=== PATIENT | female | born 2005 | race Caucasian/White ===

== ENCOUNTER 2025-07-15 18:42 | Observation (INO) ==
--- NOTE | 2025-07-15 19:21 | Emergency Department Note ---
Impression & Plan AVM (arteriovenous malformation) brain, Visual disturbance, Headache ED Provider Note NAME: CHRISTIANO GALAVIZ AGE: 19 SEX: F : 2005 ARRIVES VIA: Walk-In INFORMANT: Patient, ED PROVIDER(S): Curt Martinez MD CHIEF COMPLAINT: Headache, vision loss MEDICAL DECISION MAKING: Patient presents with the above. The patient does have associated headache now but has not had vision loss since lunch today. The patient has had 2 episodes in the last 2 days. Currently without any visual field deficits but does describe left temporal hemianopsia. IV was established and blood work was obtained. CT head initially obtained. The patient did have recent negative CT angiography of the head and neck with the exception of the prior AVM which the patient had reported status posttreatment. Patient was ordered headache medications. Upon reassessment the patient still had mild headache. The patient CT head that showed the calcified lesion that was noted before. I did speak with Dr. Dye at [facility] neurology service who recommended an MRI of the brain without contrast as well as head and neck MRAs as well as brain MRV. I did speak the patient. I subsequent did speak with the patient's parents her mother Britta and her father. And are amenable to current plan of care. Patient currently without any acute symptoms other than the headache but does not exhibit temporal hemianopsia as she described from earlier today prior to her visit. I did speak with Dr. Elena and the patient was admitted to medicine service Discussion w/ other healthcare providers: Dr. Olivas [facility] neurology Dr. Elena inpatient medicine service Prior /Outside records reviewed: None Differential diagnosis: Migraine headache, complicated migraine, stroke, mini stroke tension headache, dehydration, meningitis, sinusitis, CO exposure, ICH, infection, tumor, sinus thrombosis as well as others were considered. Diagnostics, as interpreted by me: ECG: None Cardiac monitoring: An order was placed for continuous cardiac monitoring. The monitor shows a rate of 79 with sinus rhythm. Patient was placed on pulse oximetry Medical decision rules: None Imaging studies: I informally interpreted the patient's CT head shows calcified lesion with formal report to follow. HPI: Patient presents due to concern for headache and vision changes. The patient states that she had an episode last evening she was walking on campus and had been outside for about 30 or 40 minutes had left-sided lateral vision loss and associated headache. Patient states that this dissipated after about 10 or 15 minutes. She also described her vision being "kaleidoscope." Patient states that this resolved. The patient states though that today at lunch patient had similar episode of symptoms lasting about 10 or 15 minutes in duration. The patient has had persistent right-sided headache although initially 7 out of 10 has improved after taking Tylenol currently 3 or 4 out of 10 in pain. The patient denies any nausea or vomiting. The patient does use corrective lenses for distance. She denies any falls or trauma does not take blood thinning medications. She states that her vision is normal at this time. She denies any neck pain. Patient describes right sided head pain. She denies any numbness ting or focal weakness. No history of stroke or seizure. PAST MEDICAL HISTORY: See Below PAST SURGICAL HISTORY: See Below SOCIAL HISTORY: See Below HOME MEDICATIONS: See Below ALLERGIES: See Below VITALS: See Below PHYSICAL EXAMINATION: GENERAL: NAD, non-toxic. EYE EXAM: Normal conjunctiva. PERRL, no anisocoria and EOM's grossly intact w/o pain. Gross vision intact 20/15 bilaterally with corrective lenses. No visual field deficits at the bedside. OROPHARYNX: Moist mucus membranes, grossly normal dentition. NECK: Trachea midline, no stridor. Supple, no nuchal rigidity, no adenopathy, non-tender. No signs of meningismus. FROM of the neck with good chin to chest and neck extension. LUNGS: Clear to auscultation. Normal chest wall mechanics. HEART: NSR, no MRG. ABDOMEN: Abdomen soft, non-tender, no masses, no rebound or guarding. BACK: No CVA TTP. SKIN: No rashes and no bruising. UPPER EXTREMITIES: Upper extremities are grossly normal. LOWER EXTREMITIES: Grossly normal, no edema. NEURO EXAM: Awake and alert, follows commands, no obvious facial asymmetry, normal speech, moves all 4 extremities. Good [id number], no drift and no sensory deficits. Past Med/Surg History Problem List (Updated 07/16/25 @ 14:57 by Curt Martinez MD) AVM (arteriovenous malformation) brain (Acute) Visual disturbance (Acute) Blurred vision (Acute) Dizziness (Acute) Headache (Acute) Social History Smoking Status: Never smoker Hx Alcohol Use: No Hx Substance Use: No Preferred Language: Divehi Communication Ability: Effective Bread Panner Required: No Beliefs That Will Affect Care: None Current Living Situation: Other Current Living Situation Comment: [employer] student living in an apartment with roommates Other Information That Helps Us Care for You: No Feels Safe at Home: Yes Safety Concerns: Feels Safe At This Time Allergies Allergies Allergy/AdvReac Type Severity Reaction Status Date / Time azithromycin Allergy Hives Verified 07/04/25 14:24 Home Meds Home Medications Medication Instructions Recorded Confirmed budesonide-formoterol HFA 80 2 puff inhalation BID 07/04/25 07/15/25 mcg-4.5 mcg/actuation aerosol inhaler (Symbicort) famotidine 40 mg tablet 40 mg PO HS 07/04/25 07/15/25 triamcinolone acetonide 55 mcg 1 spray intranasal ONCE PM 07/04/25 07/15/25 nasal spray aerosol (Nasacort) Previous Rx's Medication Instructions Recorded methylprednisolone 4 mg tablets in 4 mg PO DAILY #21 ea 07/16/25 a dose pack (Medrol (Maicol)) Results & Data (ED) Vital Signs Vital Signs - 24 hr 07/15/25 18:51 07/15/25 19:09 07/15/25 20:04 Temperature 36.4 C L Temperature Source Temporal Artery Scan Pulse Rate 86 77 Pulse Rate [Apical] 82 Pulse Rate from SpO2 Sensor Pulse Rhythm Regular Pulse Rhythm [Apical] Pulse Strength [Apical] Respiratory Rate 16 16 Respiratory Effort / Characteristics Non-Labored Spontaneous Non-Labored Spontaneous Respiratory Depth Normal Normal Respiratory Pattern Regular Regular Blood Pressure 116/77 Blood Pressure [Right Arm] 127/74 Blood Pressure Mean 90 Blood Pressure Mean [Right Arm] 91 Blood Pressure Position [Right Arm] Semi-fowlers Pulse Oximetry 98 100 100 Oxygen Delivery Method Room Air Room Air Room Air Sepsis Recent Fever Within 48 Hours No Sepsis New/Unexplained Change in Mental Status N/A Sepsis Action Taken by Nursing No Action Required 07/15/25 21:00 07/15/25 22:00 Temperature Temperature Source Pulse Rate 75 Pulse Rate [Apical] 71 Pulse Rate from SpO2 Sensor 72 Pulse Rhythm Pulse Rhythm [Apical] Regular Pulse Strength [Apical] Normal Respiratory Rate 16 15 Respiratory Effort / Characteristics Non-Labored Spontaneous Respiratory Depth Normal Respiratory Pattern Regular Blood Pressure Blood Pressure [Right Arm] 112/66 Blood Pressure Mean Blood Pressure Mean [Right Arm] 81 Blood Pressure Position [Right Arm] Semi-fowlers Pulse Oximetry 99 98 Oxygen Delivery Method Room Air Room Air Sepsis Recent Fever Within 48 Hours Sepsis New/Unexplained Change in Mental Status Sepsis Action Taken by Snf Medications Current Medication List: was personally reviewed by me Laboratory Data Attestation: I reviewed the patient's lab results. 07/15/25 19:44 07/15/25 19:44 Lab Results 07/15/25 Range/Units 19:44 WBC 6.74 (4.8-10.8) K/ul RBC 4.63 (4.20-5.40) M/uL Hgb 13.3 (12.0-16.0) g/dL Hct 39.0 (37.0-47.0) % MCV 84.2 (80.0-100.0) fL MCH 28.7 (25.0-34.0) pg MCHC 34.1 (32.0-36.0) g/dL RDW Std Deviation 37.8 (36.4-46.3) fL RDW Coeff of Buck 12.4 (11.5-14.5) % Plt Count 267 (130-400) K/uL MPV 9.4 (9.4-12.4) fL Immature Gran % (Auto) 0.1 % Neut % (Auto) 48.9 % Lymph % (Auto) 42.3 % [place] % (Auto) 6.2 % Eos % (Auto) 2.2 % Baso % (Auto) 0.3 % Neut # (Auto) 3.29 (1.40-6.50) K/uL Lymph # (Auto) 2.85 (1.20-3.40) K/uL [place] # (Auto) 0.42 (0.11-0.59) K/uL Eos # (Auto) 0.15 (0.00-0.50) K/uL Baso # (Auto) 0.02 (0.00-0.20) K/uL Immature Gran # (Auto) 0.01 (0.01-0.20) K/uL Sodium 138 (136-145) mmol/L Potassium 3.8 (3.5-5.1) mmol/L Chloride 105 (98-107) mmol/L Carbon Dioxide 26 (21-32) mmol/L Anion Gap 7 (3-11) BUN 23 (6-23) mg/dl Creatinine 0.66 (0.6-1.2) mg/dl Est Cr Clr Drug Dosing 108.4 ml/min eGFR 129.51 BUN/Creatinine Ratio 34.8 H (10-20) Glucose 111 H (70-99(Fasting)) mg/dl Calcium 9.9 (8.6-10.3) mg/dl Administered Medications Discontinued Medications Acetaminophen (Acetaminophen 1000 Mg/100 Ml Iv) 1,000 mg IV NOW STA Stop: 07/15/25 19:38 Last Admin: 07/15/25 19:52 Dose: 1,000 mg Documented By: lolis Fluticasone/Vilanterol (Fluticasone/Vilanterol 100/25mcg 14 Puffs/Inhaler) 1 puffs INH DAILY KIMANI; Protocol Stop: 08/15/25 08:59 Last Admin: 07/16/25 10:11 Dose: 1 puffs Documented By: MIHIR Gadobutrol (Gadobutrol 30ml Vial) 5 ml IV ONCE ONE Stop: 07/15/25 23:31 Last Admin: 07/15/25 23:32 Dose: 5 ml Documented By: alyce Sodium Chloride (Nss) 500 mls @ 999 mls/hr IV .Q31M KIMANI Stop: 07/15/25 20:15 Last Infusion: 07/15/25 20:30 Dose: Infused Documented By: lolis Admin: 07/15/25 19:52 Dose: 999 mls/hr Documented By: lolis Ondansetron HCl (Ondansetron Inj 2 Mg/Ml 2 Ml Vial) 4 mg IV NOW STA Stop: 07/15/25 19:38 Last Admin: 07/15/25 19:52 Dose: 4 mg Documented By: lolis Prednisone (Prednisone 20 Mg Tab) 40 mg PO NOW STA Stop: 07/16/25 11:25 Last Admin: 07/16/25 11:42 Dose: 40 mg Documented By: MIHIR Imaging Data Radiologist's Impression: Head CT 07/15/25 19:37 Exam(s): CT HEAD Without Contrast EXAM: CT Head Without Intravenous Contrast CLINICAL HISTORY: Reason for exam: Headache. TECHNIQUE: Axial computed tomography images of the head/brain without intravenous contrast. CTDI is 38.31 mGy and DLP is 547.75 mGy-cm. Automated exposure control was utilized for the study. A dose lowering technique was utilized adhering to the principles of ALARA. COMPARISON: Prior head CT from July 04, 2025. FINDINGS: Brain: There is heavy mineralization of the right parietal lobe gyri with large draining vein concerning for AVM. No hemorrhage. No significant white matter disease. No edema. Ventricles: Unremarkable. No ventriculomegaly. Bones/joints: Unremarkable. No acute fracture. Soft tissues: Unremarkable. Sinuses: Unremarkable as visualized. No acute sinusitis. Mastoid air cells: Unremarkable as visualized. No mastoid effusion. IMPRESSION: No evidence of acute intracranial pathology. Findings concerning for heavily mineralized AVM in the right parietal lobe. Electronically signed by: Tracy Wade MD 07/15/25 21:27 PM Head MRA 07/15/25 21:29 Exam(s): MRA HEAD Without Contrast EXAM: MR Angiography Head Without Intravenous Contrast CLINICAL HISTORY: Reason for exam: AVM h/o; L temporal hemaniopsia resolved. TECHNIQUE: Magnetic resonance angiography images of the head without intravenous contrast. COMPARISON: Prior CT angiogram of the head from July 04, 2025. FINDINGS: There is an AVM in the medial right parietal lobe. Right internal carotid artery: No acute findings. Intracranial segment is patent with no significant stenosis. No aneurysm. Right anterior cerebral artery: Unremarkable. No occlusion or significant stenosis. No aneurysm. Right middle cerebral artery: Unremarkable. No occlusion or significant stenosis. No aneurysm. Right posterior cerebral artery: Unremarkable. No occlusion or significant stenosis. No aneurysm. Right vertebral artery: Unremarkable as visualized. Left internal carotid artery: No acute findings. Intracranial segment is patent with no significant stenosis. No aneurysm. Left anterior cerebral artery: Unremarkable. No occlusion or significant stenosis. No aneurysm. Left middle cerebral artery: Unremarkable. No occlusion or significant stenosis. No aneurysm. Left posterior cerebral artery: Unremarkable. No occlusion or significant stenosis. No aneurysm. Left vertebral artery: Unremarkable as visualized. Basilar artery: Unremarkable. No occlusion or significant stenosis. No aneurysm. IMPRESSION: There is an AVM in the medial right parietal lobe. No evidence of acute cerebrovascular pathology. Electronically signed by: Tracy Wade MD 07/16/25 00:30 AM Head/Brain Mag Res Venography 07/15/25 21:29 Exam(s): MRV HEAD EXAM: MR Venography Head Without Intravenous Contrast CLINICAL HISTORY: Reason for exam: AVM h/o; L temporal hemaniopsia resolved. TECHNIQUE: Magnetic resonance venography images of the head without intravenous contrast. 3D and MIP reconstructed images were created and reviewed. COMPARISON: No relevant prior studies available. FINDINGS: Superior sagittal sinus: Unremarkable. Patent. Straight sinus: Unremarkable. Patent. Transverse sinuses: Unremarkable. Patent. Sigmoid sinuses: Unremarkable. Patent. Internal jugular veins: Unremarkable as visualized. Internal cerebral and cortical veins: Unremarkable as visualized. IMPRESSION: Negative MRV of the brain. Electronically signed by: Tracy Wade MD 07/16/25 00:28 AM Neck MRA 07/15/25 21:29 Exam(s): MRA NECK Without Contrast EXAM: MR Angiography Neck Without Intravenous Contrast CLINICAL HISTORY: Reason for exam: AVM h/o; L temporal hemaniopsia resolved. TECHNIQUE: Magnetic resonance angiography images of the neck without intravenous contrast. COMPARISON: No relevant prior studies available. FINDINGS: Right common carotid artery: Unremarkable. No significant stenosis. No dissection or occlusion. Right internal carotid artery: Unremarkable. Extracranial segment is patent with no significant stenosis. No dissection or occlusion. Right external carotid artery: Unremarkable. No occlusion. Right vertebral artery: Unremarkable. No significant stenosis. No dissection or occlusion. Left common carotid artery: Unremarkable. No significant stenosis. No dissection or occlusion. Left internal carotid artery: Unremarkable. Extracranial segment is patent with no significant stenosis. No dissection or occlusion. Left external carotid artery: Unremarkable. No occlusion. Left vertebral artery: Unremarkable. No significant stenosis. No dissection or occlusion. Soft tissues: Moderate size right thyroid nodule. CAROTID STENOSIS REFERENCE USING NASCET CRITERIA: % ICA stenosis = (1 - narrowest ICA diameter/diameter of distal cervical ICA) x 100. Mild - <50% stenosis. Moderate - 50-69% stenosis. Severe - 70-94% stenosis. Near occlusion - 95-99% stenosis. Occluded - 100% stenosis. IMPRESSION: Negative MRA of the neck. Electronically signed by: Tracy Wade MD 07/16/25 00:31 AM Brain MRI 07/15/25 21:30 Exam(s): MRI HEAD W/WO Contrast EXAM: MR Head Without and With Intravenous Contrast CLINICAL HISTORY: Reason for exam: AVM h/o; L temporal hemaniopsia resolved. TECHNIQUE: Magnetic resonance images of the head/brain without and with intravenous contrast in multiple planes. CONTRAST: Contrast must be dictated COMPARISON: Prior head CT from the same day. FINDINGS: Brain: There is a heavily calcified AVM in the medial right parietal lobe with large draining vein and mild surrounding vasogenic edema. No hemorrhage. No acute infarct. The flow voids at the base of the brain are intact. The dural venous sinuses are patent. Ventricles: Unremarkable. No ventriculomegaly. Bones/joints: Unremarkable. No acute fracture. Sinuses: Unremarkable as visualized. No acute sinusitis. Mastoid air cells: Unremarkable as visualized. No mastoid effusion. Orbits: Unremarkable as visualized. IMPRESSION: There is a heavily calcified AVM in the medial right parietal lobe with mild surrounding vasogenic edema. No evidence of hemorrhage. Recommend neuro IR consult for treatment. Electronically signed by: Tracy Wade MD 07/16/25 00:26 AM Discharge Plan Visit Data Chief Complaint: Headache Stated Complaint: HEADACHE, VISUAL DISTURBANCE, BRAIN ABM ED Provider: Curt Martinez Discharge Problem: AVM (arteriovenous malformation) brain, Visual disturbance, Headache Patient Disposition: Admitted As Inpatient Condition: Good Discharge Instructions Interventions: ED Discharge Assessment Last Done: 07/15/25 23:22 Discharge Problem: Headache Qualifiers: Headache type: unspecified Headache chronicity pattern: acute headache
[2025-07-15] MEDS: ONDANSETRON INJ 2 MG/ML 2 ML VIAL IV STA (19:52)
[2025-07-15] MEDS: ACETAMINOPHEN 1000 MG/100 ML IV IV STA (19:52)
[2025-07-15] MEDS: SODIUM CHLORIDE 0.9% 500 ML IV SCH (19:52)
[2025-07-15 19:59] LABS: Hematocrit (blood only) 39.0 % (37.0-47.0); Hemoglobin 13.3 g/dL (12.0-16.0); Immature Granulocytes # (auto) 0.01 K/uL (0.01-0.20); Immature Granulocytes % (auto) 0.1 %; Mean Corpuscular Hemoglobin 28.7 pg (25.0-34.0); Mean Corpuscular Volume 84.2 fL (80.0-100.0); Platelet Count 267 K/uL (130-400); RDW Standard Deviation 37.8 fL (36.4-46.3); Red Blood Count 4.63 M/uL (4.20-5.40); White Blood Count 6.74 K/ul (4.8-10.8)
[2025-07-15 20:17] LABS: Anion Gap 7.0 (3-11); Blood Urea Nitrogen 23.0 mg/dl (6-23); Calcium 9.9 mg/dl (8.6-10.3); Carbon Dioxide 26.0 mmol/L (21-32); Chloride 105.0 mmol/L (98-107); Creatinine Clr Calc Pharmacy 108.4 ml/min; Glucose 111.0 mg/dl (70-99(Fasting)); Potassium 3.8 mmol/L (3.5-5.1); Sodium 138.0 mmol/L (136-145)
--- NOTE | 2025-07-15 21:28 | CT Scan Report ---
Exam(s): CT HEAD Without Contrast EXAM: CT Head Without Intravenous Contrast CLINICAL HISTORY: Reason for exam: Headache. TECHNIQUE: Axial computed tomography images of the head/brain without intravenous contrast. CTDI is 38.31 mGy and DLP is 547.75 mGy-cm. Automated exposure control was utilized for the study. A dose lowering technique was utilized adhering to the principles of ALARA. COMPARISON: Prior head CT from July 04, 2025. FINDINGS: Brain: There is heavy mineralization of the right parietal lobe gyri with large draining vein concerning for AVM. No hemorrhage. No significant white matter disease. No edema. Ventricles: Unremarkable. No ventriculomegaly. Bones/joints: Unremarkable. No acute fracture. Soft tissues: Unremarkable. Sinuses: Unremarkable as visualized. No acute sinusitis. Mastoid air cells: Unremarkable as visualized. No mastoid effusion. IMPRESSION: No evidence of acute intracranial pathology. Findings concerning for heavily mineralized AVM in the right parietal lobe. Electronically signed by: Tracy Wade MD 07/15/25 21:27 PM
--- NOTE | 2025-07-15 22:06 | History & Physical Report ---
Date of Service July 15, 2025 Assessment & Plan (1) Headache: (2) Visual disturbance: (3) AVM (arteriovenous malformation) brain: Plan 19-year-old female PMHx known AVM and GERD presenting for headache starting 1 day DIRECTOR DRUG as well as visual disturbances. Overall evaluation is unremarkable with labs. Her imaging is without acute findings but does show evidence of a heavily mineralized AVM in the R parietal lobe. Admission for further imaging and neurology evaluation. #Headache with visual disturbances/AVM of brain Presented with visual disturbances and headache, now resolved. History of AVM, dx Aug/Sep 2024 timeframe, s/p neuro surgery for embolization December 2024. No other known areas of AVMs per pt. Imaging pending, neuro to evaluate patient. - CBC and CMP grossly unremarkable - Head CT no evidence of acute cranial pathology, does show findings concerning for heavily mineralized AVM in the R parietal lobe - Zofran prn N/V - Acetaminophen prn fever/pain - May use Vicks VapoRub or hospital equivalent prn for pain - MRA head and neck, MRV head reported as negative, MRA head still revealing AVM medial R parietal lobe - MRI brain calcified AVM in medial R parietal lobe with mild surrounding vasogenic edema, no hemorrhage -- recommended IR neuro consult Discussed findings with nanofabrication specialist neurologist - possibly chronic changes, no thrombosis or aneurysm - can trial steroids if headaches become more severe - Neurology consulted - appreciate input and recs #Asthma- Symbicort - continue formulary option Dispo: Obs, med/sx VTE Prophylaxis: SCDs This document was dictated utilizing Osmopure. Please excuse any grammatical errors that may be secondary to use of this software. Admission and Anticipated Discharge Date Admission Date: 07/15/2025 History of Present Illness Chief Complaint: COKER, visual disturbances Primary Care Provider: [facility] 19-year-old female PMHx known AVM and GERD presenting for headache starting 1 day DIRECTOR [employer] as well as visual disturbances. Patient reports the evening [employer] she experienced vision loss in the left eye in the lateral field that is associated with a headache mostly on the right side but also as a headband type pattern across her forehead. The vision loss lasted for approximately 10 minutes, was described as a "kaleidoscope" as well as a splotchy black area in her left sided vision. Similar episode occurred day of arrival near lunchtime. Symptoms have since resolved, but headache continues to persist. Rates the pain a 3-4 out of 10 on the pain scale. Describes it as an aching pain across to her head in a headband like fashion as well as occasional shooting pain only on the right side. At its worst, the pain was a 7 out of 10 on the pain scale. Normally when she has headaches like this she utilizes Vicks vapor rub and it helps to alleviate the pain some. No other focal deficits to include weakness, numbness/tingling, or ongoing visual disturbances. She reports that she was diagnosed with AVM in approximately August/September timeframe after her initial headache occurred around of 2023. She then underwent brain surgery in December 2024 for embolization that was limited secondary to risk of CVA. She has on and off headaches, no clear triggers, but the visual disturbances are new. No other areas of known AVMs. She felt slightly "disoriented" with her visual changes, but feels back to baseline in that regard at present. Denies chest pain, SOB, palpitations, abdominal pain, N/V/D/C, fever/chills, URI symptoms, LUTS, weakness, syncope, or falls. ED evaluation CBC without leukocytosis or leukopenia, stable H&H and platelets; CMP BUN/creatinine ratio 34.8, glucose 111; head CT no evidence of acute intracranial pathology, findings concerning for heavily mineralized AVM in the R parietal lobe.; Provided with 500 mL NSS, Zofran 4 mg IV, acetaminophen 1 g IV in ED. Please see Dr. Maldonado's attestation for adjustments/additions to treatment plan. Allergies Allergy/AdvReac Type Severity Reaction Status Date / Time azithromycin Allergy Hives Verified 07/04/25 14:24 Home Medications Medication Instructions Recorded Confirmed Type budesonide-formoterol HFA 80 2 puff inhalation BID 07/04/25 07/15/25 History mcg-4.5 mcg/actuation aerosol inhaler (Symbicort) famotidine 40 mg tablet 40 mg PO HS 07/04/25 07/15/25 History triamcinolone acetonide 55 mcg 1 spray intranasal ONCE PM 07/04/25 07/15/25 History nasal spray aerosol (Nasacort) methylprednisolone 4 mg tablets in 4 mg PO DAILY #21 ea 07/16/25 Rx a dose pack (Medrol (Maicol)) Past Med/Surg History Problem List (Updated 07/16/25 @ 14:57 by Curt Martinez MD) AVM (arteriovenous malformation) brain (Acute) Visual disturbance (Acute) Blurred vision (Acute) Dizziness (Acute) Headache (Acute) Social History Smoking Status: Never smoker Hx Alcohol Use: No Hx Substance Use: No Preferred Language: Latvian Communication Ability: Effective Automatic Equipment Technician Required: No Beliefs That Will Affect Care: None Current Living Situation: Other Current Living Situation Comment: [employer] student living in an apartment with roommates Other Information That Helps Us Care for You: No Feels Safe at Home: Yes Safety Concerns: Feels Safe At This Time Review of Systems Review of Systems: All systems reviewed & are unremarkable except as noted in Subjective Physical Exam Physical Exam: General: No acute distress Skin: Warm and dry Head: Normocephalic, atraumatic Eyes: PERRL, conjunctivae clear, sclera non-icteric, EOM intact ENT: External ear and ear canal without swelling; nose atraumatic; good dentition, tongue normal appearance, pharynx normal Neck: Supple, no LAD Cardio: RRR, no M/G/R, S1 and S2 normal Resp: No respiratory distress, Lungs CTA in all lobes bilaterally, no wheezes, rales, or rhonchi Abdomen: Soft, symmetric, nontender; No masses or hepatosplenomegaly; Bowel sounds normoactive MSK: No deformities; pulses palpable and equal; no edema. Neuro: Awake, alert; Sensation intact bilaterally; CN grossly intact, no focal deficits Psych: Appropriate mood and affect; good judgement and insight. Friend present in room at time of visit. Results & Data Results & Data Vital Signs (Past 12 Hours) Vital Signs Temp Pulse Pulse Resp BP BP Pulse Ox 07/15/25 21:00 71 16 112/66 99 07/15/25 20:04 77 100 07/15/25 19:09 82 16 127/74 100 07/15/25 18:51 36.4 C L 86 16 116/77 98 O2 Del Method 07/15/25 21:00 Room Air 07/15/25 20:04 Room Air 07/15/25 19:09 Room Air 07/15/25 18:51 Room Air Laboratory Results 07/15/25 19:44 WBC 6.74 RBC 4.63 Hgb 13.3 Hct 39.0 MCV 84.2 MCH 28.7 MCHC 34.1 RDW Std Deviation 37.8 RDW Coeff of Buck 12.4 Plt Count 267 MPV 9.4 Immature Gran % (Auto) 0.1 Neut % (Auto) 48.9 Lymph % (Auto) 42.3 [place] % (Auto) 6.2 Eos % (Auto) 2.2 Baso % (Auto) 0.3 Neut # (Auto) 3.29 Lymph # (Auto) 2.85 [place] # (Auto) 0.42 Eos # (Auto) 0.15 Baso # (Auto) 0.02 Immature Gran # (Auto) 0.01 Sodium 138 Potassium 3.8 Chloride 105 Carbon Dioxide 26 Anion Gap 7 BUN 23 Creatinine 0.66 Est Cr Clr Drug Dosing 108.4 eGFR 129.51 BUN/Creatinine Ratio 34.8 H Glucose 111 H Calcium 9.[address] 07/15/25 19:37 Exam(s): CT HEAD Without Contrast EXAM: CT Head Without Intravenous Contrast CLINICAL HISTORY: Reason for exam: Headache. TECHNIQUE: Axial computed tomography images of the head/brain without intravenous contrast. CTDI is 38.31 mGy and DLP is 547.75 mGy-cm. Automated exposure control was utilized for the study. A dose lowering technique was utilized adhering to the principles of ALARA. COMPARISON: Prior head CT from July 04, 2025. FINDINGS: Brain: There is heavy mineralization of the right parietal lobe gyri with large draining vein concerning for AVM. No hemorrhage. No significant white matter disease. No edema. Ventricles: Unremarkable. No ventriculomegaly. Bones/joints: Unremarkable. No acute fracture. Soft tissues: Unremarkable. Sinuses: Unremarkable as visualized. No acute sinusitis. Mastoid air cells: Unremarkable as visualized. No mastoid effusion. IMPRESSION: No evidence of acute intracranial pathology. Findings concerning for heavily mineralized AVM in the right parietal lobe. Electronically signed by: Trcay Wade MD 07/15/25 21:27 PM Medications Administered 500 mL NSS Zofran 4 mg IV Acetaminophen 1 g IV Code Status & VTE Plan Code Status Full Supervising Physician Co-Signing Physician Notes Attending addendum: I have physically seen this patient, have supervised the medical residents activities, and agree with the H&P unless as otherwise noted. Assessment and Plan: 19yo female with PMH including Brain AVM, and GERD who presents to the ED with complaint of headache and visual disturbance starting 1 day DIRECTOR DRUG. Workup in the ED includes normal CBC and chemistries. CT of head shows a heavily mineralized AVM in the Right parietal lobe. Neurology consult advised admission and further imaging by MRI. Headache with visual disturbance/ right parietal lobe AVM- Symptoms have resolved while in the ED Zofran 4 mg IV every 6 hours as needed Acetaminophen 1 g IV every 8 hours as needed for mild pain or fever CT abdomen shows heavily mineralized AVM in parietal lobe MRI brain and MRA showed calcified AVM medial right parietal lobe with mild surrounding vasogenic edema, no hemorrhage. MRV head is negative Findings discussed with on-call neurology, who felt changes were probably chronic, with no thrombosis or aneurysm. Trial of steroids if symptoms recur and/or worsen Asthma- Continue Symbicort and PG Care Time/CCT Total # of Minutes Spent Total Time Spent with Patient: Total time spent is greater than 50% in coordination of care (as documented) at patient's floor/unit and/or counseling patient: Coding Level of Care Code 62137 INT INP/OBS CARE 2/55MIN Diagnoses Headache G44.89 Headache type: other headache syndrome Visual disturbance H53.9 AVM (arteriovenous malformation) brain Q28.2 (1) Headache Headache type: other headache syndrome Qualified Code(s): G44.89 - Other h eadache syndrome
[2025-07-15] MEDS: GADOBUTROL 30ML VIAL IV ONE (23:32)
[2025-07-16] MEDS ORDERED: POLYETHYLENE (MIRALAX) 17 GM PACK PO PRN (00:04)
[2025-07-16] MEDS ORDERED: ACETAMINOPHEN 500 MG TAB PO PRN (00:04)
[2025-07-16] MEDS ORDERED: ONDANSETRON INJ 2 MG/ML 2 ML VIAL IV PRN (00:04)
--- NOTE | 2025-07-16 00:28 | Magnetic Resonance Report ---
Exam(s): MRI HEAD W/WO Contrast EXAM: MR Head Without and With Intravenous Contrast CLINICAL HISTORY: Reason for exam: AVM h/o; L temporal hemaniopsia resolved. TECHNIQUE: Magnetic resonance images of the head/brain without and with intravenous contrast in multiple planes. CONTRAST: Contrast must be dictated COMPARISON: Prior head CT from the same day. FINDINGS: Brain: There is a heavily calcified AVM in the medial right parietal lobe with large draining vein and mild surrounding vasogenic edema. No hemorrhage. No acute infarct. The flow voids at the base of the brain are intact. The dural venous sinuses are patent. Ventricles: Unremarkable. No ventriculomegaly. Bones/joints: Unremarkable. No acute fracture. Sinuses: Unremarkable as visualized. No acute sinusitis. Mastoid air cells: Unremarkable as visualized. No mastoid effusion. Orbits: Unremarkable as visualized. IMPRESSION: There is a heavily calcified AVM in the medial right parietal lobe with mild surrounding vasogenic edema. No evidence of hemorrhage. Recommend neuro IR consult for treatment. Electronically signed by: Tracy Wade MD 07/16/25 00:26 AM
--- NOTE | 2025-07-16 00:29 | Magnetic Resonance Report ---
Exam(s): MRV HEAD EXAM: MR Venography Head Without Intravenous Contrast CLINICAL HISTORY: Reason for exam: AVM h/o; L temporal hemaniopsia resolved. TECHNIQUE: Magnetic resonance venography images of the head without intravenous contrast. 3D and MIP reconstructed images were created and reviewed. COMPARISON: No relevant prior studies available. FINDINGS: Superior sagittal sinus: Unremarkable. Patent. Straight sinus: Unremarkable. Patent. Transverse sinuses: Unremarkable. Patent. Sigmoid sinuses: Unremarkable. Patent. Internal jugular veins: Unremarkable as visualized. Internal cerebral and cortical veins: Unremarkable as visualized. IMPRESSION: Negative MRV of the brain. Electronically signed by: Tracy Wade MD 07/16/25 00:28 AM
--- NOTE | 2025-07-16 00:31 | Magnetic Resonance Report ---
Exam(s): MRA NECK Without Contrast EXAM: MR Angiography Neck Without Intravenous Contrast CLINICAL HISTORY: Reason for exam: AVM h/o; L temporal hemaniopsia resolved. TECHNIQUE: Magnetic resonance angiography images of the neck without intravenous contrast. COMPARISON: No relevant prior studies available. FINDINGS: Right common carotid artery: Unremarkable. No significant stenosis. No dissection or occlusion. Right internal carotid artery: Unremarkable. Extracranial segment is patent with no significant stenosis. No dissection or occlusion. Right external carotid artery: Unremarkable. No occlusion. Right vertebral artery: Unremarkable. No significant stenosis. No dissection or occlusion. Left common carotid artery: Unremarkable. No significant stenosis. No dissection or occlusion. Left internal carotid artery: Unremarkable. Extracranial segment is patent with no significant stenosis. No dissection or occlusion. Left external carotid artery: Unremarkable. No occlusion. Left vertebral artery: Unremarkable. No significant stenosis. No dissection or occlusion. Soft tissues: Moderate size right thyroid nodule. CAROTID STENOSIS REFERENCE USING NASCET CRITERIA: % ICA stenosis = (1 - narrowest ICA diameter/diameter of distal cervical ICA) x 100. Mild - <50% stenosis. Moderate - 50-69% stenosis. Severe - 70-94% stenosis. Near occlusion - 95-99% stenosis. Occluded - 100% stenosis. IMPRESSION: Negative MRA of the neck. Electronically signed by: Tracy Wade MD 07/16/25 00:31 AM
--- NOTE | 2025-07-16 00:31 | Magnetic Resonance Report ---
Exam(s): MRA HEAD Without Contrast EXAM: MR Angiography Head Without Intravenous Contrast CLINICAL HISTORY: Reason for exam: AVM h/o; L temporal hemaniopsia resolved. TECHNIQUE: Magnetic resonance angiography images of the head without intravenous contrast. COMPARISON: Prior CT angiogram of the head from July 04, 2025. FINDINGS: There is an AVM in the medial right parietal lobe. Right internal carotid artery: No acute findings. Intracranial segment is patent with no significant stenosis. No aneurysm. Right anterior cerebral artery: Unremarkable. No occlusion or significant stenosis. No aneurysm. Right middle cerebral artery: Unremarkable. No occlusion or significant stenosis. No aneurysm. Right posterior cerebral artery: Unremarkable. No occlusion or significant stenosis. No aneurysm. Right vertebral artery: Unremarkable as visualized. Left internal carotid artery: No acute findings. Intracranial segment is patent with no significant stenosis. No aneurysm. Left anterior cerebral artery: Unremarkable. No occlusion or significant stenosis. No aneurysm. Left middle cerebral artery: Unremarkable. No occlusion or significant stenosis. No aneurysm. Left posterior cerebral artery: Unremarkable. No occlusion or significant stenosis. No aneurysm. Left vertebral artery: Unremarkable as visualized. Basilar artery: Unremarkable. No occlusion or significant stenosis. No aneurysm. IMPRESSION: There is an AVM in the medial right parietal lobe. No evidence of acute cerebrovascular pathology. Electronically signed by: Tracy Wade MD 07/16/25 00:30 AM
[2025-07-16 07:28] VITALS: TEMP 97.7; O2SAT 97
[2025-07-16] MEDS: FLUTICASONE/VILANTEROL 100/25MCG 14 PUFFS/INHALER INH SCH (10:11)
--- NOTE | 2025-07-16 10:55 | Neurology Consultation ---
Date of Consultation July 16, 2025 Assessment & Plan (1) Visual disturbance: Vision disturbance which are felt to be described as" spells" by patient. Presents with historical 3 episodes 1 which came out last week associated with left vision loss blotchy vision kaleidoscope vision lasting 10 to 15 minutes felt disoriented and confused. Last 2 spells happen a day ago accompanied with headaches starting with blotchy vision kaleidoscope vision lasting 10 to 15 minutes associated with disorientation and confusion. No other associated findings such as speech or loss of consciousness or altered leg symptoms. No overall control seems noted. Symptoms are resolved now. MRI of the brain shows AVM calcified right parietal lobe region with associated radiation changes/history of radiation. Concerns for some swelling around the area. MRV or MR venogram study does not show thrombosis MR a study of the head and neck no flow-limiting stenosis identified. (2) Blurred vision: (3) Headache: No prior history of migraine headaches no history of motion sickness/carsickness when younger (4) AVM (arteriovenous malformation) brain: Has history of AVM [facility] and also [facility]. Plan - Medrol Dosepak or methylprednisolone for 6 days take as directed for swelling/headache improvement. Patient has been on Decadron in the past and familiar with steroids usage. - MRI of the brain reviewed no hemorrhage seen or acute findings. MRV/MRA reviewed with no blockages or findings to suggest thrombosis. - Patient will need scans performed here at [facility] to be provided to her so she could provide to ADM providers at [facility] for her appointment coming up in the near future. - EEG as an outpatient to be done looking for underlying seizure activity/epilep tiform activity since some of the spells are fairly stereotyped. No episodes of loss of consciousness only disorientation and confusion reduced cost. - Outpatient follow-up with neurology here at [facility] - Patient will let us know how she is responding to steroids prior to making any accommodations with her finals coming up. Thank you for this telehealth appointment. Please [place] text neurology with any questions if these arise. Kaz Rossi Neurology Total time spent: Total time spent was of 90 minutes. Of this 44 minutes was spent with the video/Amwell consultation which included history taking and examination. Rest of this 46 minutes total was spent with chart review/review of the images and lab results and also documentation and discussion with providers. Telehealth Consultation Telehealth Information Telehealth Information: I performed this visit using a real-time telehealth connection between my location and the patients originating location ([facility]). After connecting through interactive tele-video, patient was identified by name and date of and/or wristband check.Patient (or authorized healthcare inventory representative) was informed that this was a telemedicine visit and it was being conducted confidentially over secure lines. My office door was closed and no one else was present in the room with me.Patient (or authorized healthcare inventory representative) provided consent to proceed with the visit, expressed an understanding of privacy and security of the telemedicine visit, and gave permission to have a hospital inventory representative in the room in order to assist with the visit and to conduct portions of the visit, as needed. I informed the patient (or authorized healthcare inventory representative) that I reviewed their record and presented the opportunity for them to ask any questions regarding the visit today. The patient agreed to participate. History of Present Illness Reason for Consultation: AVM headaches Vision changes Requesting Physician: Carolee Love Pa-C Attending Physician: Jozef Swan MD History of Present Illness 19-year-old who has a prior history of AVM follow-up in [facility] in [facility]. Attempted embolization but this was not continued with ultimate treatment with radiation. Due for follow-up with AVM providers in the near future. Presented a week ago with an episode of kaleidoscope vision also blotchy vision with left vision loss came on suddenly the night prior she was walking out in the cold cart inside felt dizzy had the vision symptoms lasted around 15 minutes she went to the bathroom she felt confused and disoriented. She thought it was due to the cold. Headaches came on with it was 7 out of 10 took Tylenol and brought the headaches down to 4 out of 10. Had 2 more episodes approximately a day ago consistent with kaleidoscope vision blotchy vision vision gives out mostly on the left and felt disoriented and confused. She does see circular pulses" and also black and blue colors with yellow. Headaches she does get headaches takes Tylenol which makes them better denies any history of migraines. Does admit to some history of carsickness or motion sickness and feels very nauseous. Denies any head trauma she only had some minor concussions in high school never has loss of consciousness related to this. The concussion was related to a trampoline accident. Denies any other symptoms such as numbness or tingling or any weakness denies any speech issues. With regards to her AVM history she presented as a brain bleed in the new years of last year. She went to [place] for AVM it was attempted in December embolization but this was discontinued since there was fear of her having a stroke with this form of treatment. She had radiation treatment at [facility] and developed brain swelling with this she did have some loss of vision related to this treated with steroids which was felt to bring the inflammation down. She has an appointment with them again in Thursday of next week. She is currently a student here at [employer] and undergoing finals. Currently her vision is better she does admit to headaches. She has not had any further episodes. Allergies Allergy/AdvReac Type Severity Reaction Status Date / Time azithromycin Allergy Hives Verified 07/04/25 14:24 Home Medications Medication Instructions Recorded Confirmed Type budesonide-formoterol HFA 80 2 puff inhalation BID 07/04/25 07/15/25 History mcg-4.5 mcg/actuation aerosol inhaler (Symbicort) famotidine 40 mg tablet 40 mg PO HS 07/04/25 07/15/25 History triamcinolone acetonide 55 mcg 1 spray intranasal ONCE PM 07/04/25 07/15/25 History nasal spray aerosol (Nasacort) Patient History Social History Smoking Status: Never smoker Hx Alcohol Use: No Hx Substance Use: No Preferred Language: Martiniquais Communication Ability: Effective Structural Metal Worker Required: No Beliefs That Will Affect Care: None Current Living Situation: Other Current Living Situation Comment: [employer] student living in an apartment with roommates Other Information That Helps Us Care for You: No Feels Safe at Home: Yes Safety Concerns: Feels Safe At This Time Review of Systems Other than above as expressed in the history of present illness she denies any other symptoms. Physical Exam Alert and attentive and oriented x 3. Her speech is fluent nondysarthric no hoarseness noted on examination. She was able to read the stroke cards without difficulty with 1 eye at a time. No definite visual deficit noted. No abnormal movements were noted. Her smile was symmetrical there was no facial symmetry noted extraocular muscles were full she was able to look up to the sides and down without any difficulty. No nystagmus was noted. There was no drift on examination coordination screen to-nose testing was within normal limits. There was no dysmetria noted. With arms raised no weakness in the upper extremities was noted. She was examined sitting in her bed. Her fund of knowledge is accurate and full. She was able to repeat without any issues and also comprehension was normal. Tone of voice affect were within normal range. She was very conversant did not appear anxious and asked very good questions. Results & Data Vital Signs (Past 12 Hours) Vital Signs Temp Pulse Pulse Pulse Resp BP Pulse Ox 07/16/25 07:26 36.5 C 81 16 103/70 97 07/16/25 03:31 36.7 C 65 18 109/67 98 07/16/25 00:44 36.7 C 79 16 113/81 96 07/16/25 00:04 36.7 C 79 16 113/81 96 07/16/25 00:00 62 O2 Del Method 07/16/25 07:26 Room Air 07/16/25 03:31 Room Air 07/16/25 00:44 Room Air 07/16/25 00:04 Room Air 07/16/25 00:00 (3) Headache Headache type: other headache syndrome Qualified Code(s): G44.89 - Other headache syndrome
[2025-07-16 11:18] VITALS: BP 106/73; RESP 17
--- NOTE | 2025-07-16 11:33 | Discharge Summary ---
Discharge Summary Date of Service July 16, 2025 Principal Dx & Hospital Course #1 = Principal Diagnosis (1) Headache: (2) Visual disturbance: (3) AVM (arteriovenous malformation) brain: Plan 19-year-old female PMHx known AVM and GERD presenting for headache starting 1 day [employer] as well as visual disturbances. Overall evaluation is unremarkable with labs. Her imaging is without acute findings but does show evidence of a heavily mineralized AVM in the R parietal lobe. Admission for further imaging and neurology evaluation. #Headache with visual disturbances/AVM of brain Presented with visual disturbances and headache. History of AVM, dx Aug/Sep 2024 timeframe, s/p neuro surgery for embolization December 2024. No other known areas of AVMs per pt. CBC and CMP grossly unremarkable Head CT no evidence of acute cranial pathology, does show findings concerning for heavily mineralized AVM in the R parietal lobe Head MRA - AVM in medial right parietal lobe; Head MRV negative Brain MRI - heavily calcified AVM in medial right parietal lobe w/ mild surrounding vasogenic edema. no evidence of hemorrhage. Rec neuro IR for tx Neurology consulted, discussed on phone --> recommending medrol dose pack on discharge, EEG outpatient to eval for partial seizures,establish with local neuro, & follow up w/ neuro provider in [place]. Stable for dc from a neuro standpoint. #Asthma- Symbicort - continue formulary option Patient discharged home 07/16. Admission HPI Per Admitting Provider 19-year-old female PMHx known AVM and GERD presenting for headache starting 1 day [employer] as well as visual disturbances. Patient reports the evening [employer] she experienced vision loss in the left eye in the lateral field that is associated with a headache mostly on the right side but also as a headband type pattern across her forehead. The vision loss lasted for approximately 10 minutes, was described as a "kaleidoscope" as well as a splotchy black area in her left sided vision. Similar episode occurred day of arrival near lunchtime. Symptoms have since resolved, but headache continues to persist. Rates the pain a 3-4 out of 10 on the pain scale. Describes it as an aching pain across to her head in a headband like fashion as well as occasional shooting pain only on the right side. At its worst, the pain was a 7 out of 10 on the pain scale. Normally when she has headaches like this she utilizes Vicks vapor rub and it helps to alleviate the pain some. No other focal deficits to include weakness, n umbness/tingling, or ongoing visual disturbances. She reports that she was diagnosed with AVM in approximately August/September timeframe after her initial headache occurred around of 2023. She then underwent brain surgery in December 2024 for embolization that was limited secondary to risk of CVA. She has on and off headaches, no clear triggers, but the visual disturbances are new. No other areas of known AVMs. She felt slightly "disoriented" with her visual changes, but feels back to baseline in that regard at present. Denies chest pain, SOB, palpitations, abdominal pain, N/V/D/C, fever/chills, URI symptoms, LUTS, weakness, syncope, or falls. ED evaluation CBC without leukocytosis or leukopenia, stable H&H and platelets; CMP BUN/creatinine ratio 34.8, glucose 111; head CT no evidence of acute intracranial pathology, findings concerning for heavily mineralized AVM in the R parietal lobe.; Provided with 500 mL NSS, Zofran 4 mg IV, acetaminophen 1 g IV in ED. Please see Dr. Maldonado's attestation for adjustments/additions to treatment plan. Discharge Exam General: NAD, VS: BP 106/73; P75; R17; T36.5C Resp: normal respiratory effort Extremities: Moves all extremities, no edema Neuro: A&O x3 Skin: intact, no lesions noted Discharge Plan Discharge Items Patient Disposition: Home - Self-Care Reason For Visit: COKER, VISUAL DISTURBANCES, H/o AVM Discharge Diagnosis: Headache, Parietal lobe AVM Condition on Discharge: Good Activity: Resume your previous activity Non-emergency contact: Primary Care Provider and Neurologist Call non-emergency contact if: you have any medication questions and your symptoms worsen Follow-up/Referrals: Asad Hughes MD [Physician] - [facility] [Primary Care Provider] - Diet: Regular Addtl Attending Provider Instructions: Ms. Whitmore, You were recently hospitalized secondary to headaches and visual disturbances. You underwent imaging to re-eval your known AVM. You were also evaluated by our neurologist who provided you with recommendations. Dr. Rossi is recommending that you be discharged on a steroid taper. 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 Our [facility] navigator will begin to work on an appointment date for both an EEG and the neurology appointment. Our facility will be in contact with you regarding the dates at times. If you decide to get your EEG close to home over your winter break, that is fine as well. I have also attached a school excuse for you for the upcoming week in the event that you should need it. An imaging disk and copy of your hospital stay has been given to you prior to discharge so that you can have the information for your upcoming follow up with your established neurologist. Medications: Your medication list has been reviewed and reconciled upon discharge to ensure accuracy and continuity of care. An updated list of all your medications is included with your hospital discharge paperwork. Please review this list closely, and make note of any changes. Please take the Medrol dose pack as prescribed. Take your medications as instructed; do not skip a dose of your medicines. Make sure all of your doctors know every medicine you are taking (including ohua-bea-xyqeybu medicines, vitamins, and supplements). Call your primary care provider before taking any new medicines (including over- the-counter medicines, vitamins, and supplements), because some of these may interact with your current medications, or may make your symptoms worse. Tell your primary care provider if you cannot afford your medications. Activity: You can do normal everyday activities as your body allows. Take rest breaks if you feel tired. Do not overexert. Stop activity if you have pain, shortness of breath or feel dizzy. Follow-up appointments: Make an appointment with your primary care physician within one week of discharge. A copy of this summary will be sent to them. Every time you see your primary care physician, or any other doctor, bring your medication list, and a list of questions. CONTACT YOUR PRIMARY CARE PROVIDER if you experience any of the following: Shortness of breath or difficulty breathing Fevers or chills Feeling tired with normal activity or experiencing dizziness or fainting Difficulty following your treatment plan, or difficulty taking medications CALL 911 OR GO TO THE EMERGENCY DEPARTMENT if you experience any of the following: Severe abdominal pain or nausea/vomiting Severe chest pain, or chest pain that radiates (moves) to your jaw or arm Sudden, severe shortness of breath or difficulty breathing Thank you for allowing us to participate in your care. Pending Studies at Discharge: No Stand-Alone Forms: [facility], Work/School Release, Smoking Cessation Medications and DC Order Prescriptions: New methylprednisolone [Medrol (Maicol)] 4 mg tablets,dose pack 4 mg PO DAILY Qty: 21 0RF Rx Instructions: Please take 6 tabs on day 1 then 5 tabs on day 2 then 4 tabs on day 3 then 3 tabs on day 4 then 2 tabs on day 5 then 1 tab on day 6 Continued famotidine 40 mg Tablet 40 mg PO HS triamcinolone acetonide [Nasacort] 55 mcg Aerosol,[place] 1 spray INTRANASAL ONCE PM budesonide-formoterol [Symbicort] 80-4.5 mcg/actuation Hfa Aerosol Inhaler 2 puff INHALATION BID Discharge Orders: Discharge Order (Routine); Ordered 07/16/25 Ordered By: Alice Gee Admission Data Admit Date/Time: 07/15/25 22:23 Attending Provider: Jozef Swan Admit Provider: Gagan Maldonado Primary Care Provider: [facility] Other Providers: Gagan Maldonado; Kaz Rossi Other Interventions: Discharge Summary Assessment (RN) Last Done: 07/16/25 11:39 Hospital Stay Data Consultations 07/15/25 21:32 ED Decision to Admit Stat 07/16/25 07:00 Consult Neurology Routine Diagnostic Imagining Performed 07/15/25 19:37 CT head/brain wo con Stat 07/15/25 21:29 MR angio head wo con Stat MR angio neck wo con Stat MR venography head wo con Stat 07/15/25 21:30 MR brain wo/w con Stat Pending Results Patient Have Any Pending Studies at Discharge: No Discharge Instructions Given to Patient (Per Discharging Provider) Ms. Whitmore, You were recently hospitalized secondary to headaches and visual disturbances. You underwent imaging to re-eval your known AVM. You were also evaluated by our neurologist who provided you with recommendations. Dr. Rossi is recommending that you be discharged on a steroid taper. 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 Our nurse navigator will begin to work on an appointment date for both an EEG and the neurology appointment. Our facility will be in contact with you regarding the dates at times. If you decide to get your EEG close to home over your winter break, that is fine as well. I have also attached a school excuse for you for the upcoming week in the event that you should need it. An imaging disk and copy of your hospital stay has been given to you prior to discharge so that you can have the information for your upcoming follow up with your established neurologist. Medications: Your medication list has been reviewed and reconciled upon discharge to ensure accuracy and continuity of care. An updated list of all your medications is included with your hospital discharge paperwork. Please review this list closely, and make note of any changes. Please take the Medrol dose pack as prescribed. Take your medications as instructed; do not skip a dose of your medicines. Make sure all of your doctors know every medicine you are taking (including wqdy-app-jxjcamj medicines, vitamins, and supplements). Call your primary care provider before taking any new medicines (including over- the-counter medicines, vitamins, and supplements), because some of these may interact with your curre nt medications, or may make your symptoms worse. Tell your primary care provider if you cannot afford your medications. Activity: You can do normal everyday activities as your body allows. Take rest breaks if you feel tired. Do not overexert. Stop activity if you have pain, shortness of breath or feel dizzy. Follow-up appointments: Make an appointment with your primary care physician within one week of discharge. A copy of this summary will be sent to them. Every time you see your primary care physician, or any other doctor, bring your medication list, and a list of questions. CONTACT YOUR PRIMARY CARE PROVIDER if you experience any of the following: Shortness of breath or difficulty breathing Fevers or chills Feeling tired with normal activity or experiencing dizziness or fainting Difficulty following your treatment plan, or difficulty taking medications CALL 911 OR GO TO THE EMERGENCY DEPARTMENT if you experience any of the following: Severe abdominal pain or nausea/vomiting Severe chest pain, or chest pain that radiates (moves) to your jaw or arm Sudden, severe shortness of breath or difficulty breathing Thank you for allowing us to participate in your care. Supervising Physician Co-Signing Physician Notes The patient was not seen by me. The chart was reviewed. Case discussed with CLYDE Sal. Agree with assessment and plan Total Time Total Time Spent Total Time Spent (In Minutes): 65 Total Time Includes: Examination of the Patient, Discharge Planning, Medication Reconciliation and Communication With Other Providers Coding Level of Care Code 33900 INP/OBS DISCH >30 MIN Diagnoses Headache G44.89 Headache type: other headache syndrome Visual disturbance H53.9 AVM (arteriovenous malformation) brain Q28.2
[2025-07-16 11:40] VITALS: PULSE 65
[2025-07-16] MEDS: predniSONE 20 MG TAB PO STA (11:42)
[2025-07-16] MEDS ORDERED: FLUTICASONE PROPIONATE NA SPR 16 GM BTL SCH (21:00)
== END 2025-07-16 14:10 | disposition home or self-care (01) ==
LOC: 2N 18:42 → ED 18:42 → SUATTDRO 22:23 → 2N 23:22